=== PATIENT | female | born 1975 | race Caucasian/White ===

== ENCOUNTER 2018-07-12 06:41 | Day surgery (SDC) | payer MEDICAID ==
[~2018-07-12 06:41] MED LIST: CEFAZOLIN 2 GM/50 ML (PMX) 50 ML IVPB; SOD CHLORIDE 0.9% 1,000 ML IV
[2018-07-12] MEDS: ACETAMINOPHEN 500 MG TAB PO (07:00)
[2018-07-12] MEDS ORDERED: CEFAZOLIN 1 GM INJ (07:55)
[2018-07-12] MEDS ORDERED: PROPOFOL 40 ML (07:55)
[2018-07-12] MEDS ORDERED: MIDAZOLAM 1 MG/ML 2 ML INJ (07:55)
[2018-07-12] MEDS ORDERED: FENTAnyl 50 MCG/ML VIAL ×2 (07:55→10:53)
[2018-07-12] MEDS ORDERED: ONDANSETRON 4 MG INJ (07:56)
[2018-07-12] MEDS ORDERED: FAMOTIDINE 20 MG INJ (07:56)
[2018-07-12] MEDS ORDERED: OXYCODONE/ACETAMINOPHEN (5/325) TAB PO ×2 (09:00)
[2018-07-12] MEDS ORDERED: HYDROmorphONE 1 MG/5 ML IV SYRINGE IV (09:00)
[2018-07-12] MEDS ORDERED: ALBUTEROL 0.083% (NEB) 2.5 MG/3 ML AMP HHN (09:00)
[2018-07-12] MEDS ORDERED: FENTAnyl 50 MCG/ML VIAL IV ×2 (09:00)
[2018-07-12] MEDS ORDERED: DIPHENHYDRAMINE 50 MG INJ IV (09:00)
[2018-07-12] MEDS ORDERED: morphine (1 MG/ML) 10ML SYRINGE IV ×2 (09:00)
[2018-07-12] MEDS ORDERED: LABETALOL HCL 20MG INJ IV (09:00)
[2018-07-12] MEDS ORDERED: METOCLOPRAMIDE 10 MG INJ (09:23)
[2018-07-12] MEDS: ISOSULFAN BLUE 1% 5 ML INJ SC (09:58)
[2018-07-12] MEDS ORDERED: ACETAMINOPHEN 1000MG/100ML IV 100 ML IVPB (11:00)
[2018-07-12] MEDS ORDERED: ONDANSETRON 4 MG INJ IV (11:00)
[2018-07-12] MEDS ORDERED: morphine 2 MG INJ IV (11:00)
[2018-07-12] MEDS: MEPERIDINE 25 MG INJ IV (11:23)
[2018-07-12] MEDS: ONDANSETRON 4 MG INJ IV (11:25)
[2018-07-12] MEDS: HYDROmorphONE 1 MG/5 ML IV SYRINGE IV ×3 (11:35→12:07)
[2018-07-12] MEDS: D5W-0.45 NACL + KCL 20 MEQ 1,000 ML IV ×3 (11:41→20:13)
[2018-07-12] MEDS: ACETAMINOPHEN 325 MG TAB PO (20:12)
[2018-07-13] MEDS: ACETAMINOPHEN 325 MG TAB PO ×2 (02:38→13:49)
[2018-07-13] MEDS: D5W-0.45 NACL + KCL 20 MEQ 1,000 ML IV (02:50)
[2018-07-13 05:49] LABS: ADD MAN DIFF? NO
[2018-07-13 05:59] LABS: BASOPHILS % 0.5 % (0.0-2.0); EOSINOPHILS % 0.5 % (0.0-7.0); HEMATOCRIT 34.2 % (37.0-47.0); LYMPHOCYTES # 0.6 10^3/ul (0.8-2.9); LYMPHOCYTES % 11.2 % (15.0-51.0); MEAN CORPUSCULAR HEMOGLOBIN 28.3 pg (29.0-33.0); MEAN CORPUSCULAR HGB CONC 32.2 g/dl (32.0-37.0); MEAN CORPUSCULAR VOLUME 87.9 fl (82.0-101.0); MEAN PLATELET VOLUME 9.6 fl (7.4-10.4); MONOCYTE # 0.3 10^3/ul (0.3-0.9); MONOCYTES % 5.2 % (0.0-11.0); NEUTROPHIL # 4.6 10^3/ul (1.6-7.5); NEUTROPHILS % 82.4 % (39.0-77.0); PLATELET COUNT 290 10^3/UL (140-415); RED BLOOD COUNT 3.89 10^6/ul (4.20-5.40); RED CELL DISTRIBUTION WIDTH 12.9 % (11.5-14.5)
[2018-07-13 05:59] LABS: WHITE BLOOD COUNT 5.6 10^3/ul (4.8-10.8)
[2018-07-13 06:24] LABS: ALANINE AMINOTRANSFERASE 30 IU/L (13-69); ALBUMIN 3.7 g/dl (3.3-4.9); ALBUMIN/GLOBULIN RATIO 1.27; ALKALINE PHOSPHATASE 40 IU/L (42-121); ANION GAP 6 (5-13); ASPARTATE AMINO TRANSFERASE 38 IU/L (15-46); BILIRUBIN,INDIRECT 0.4 mg/dl (0-1.1); BILIRUBIN,TOTAL 0.4 mg/dl (0.2-1.3); BLOOD UREA NITROGEN 4 mg/dl (7-20); CALCIUM 8.9 mg/dl (8.4-10.2); CARBON DIOXIDE 25 mmol/L (21-31); CHLORIDE 110 mmol/L (97-110); CREATININE 0.45 mg/dl (0.44-1.00); Estimated GFR > 60 mL/min (>60); GLUCOSE 93 mg/dl (70-220); POTASSIUM 4.1 mmol/L (3.5-5.1); SODIUM 141 mmol/L (135-144); TOTAL PROTEIN 6.6 g/dl (6.1-8.1)
[2018-07-13] MEDS: HYDROCODONE/APAP (5/325) TAB PO (09:21)
== END 2018-07-13 15:45 | disposition home or self-care (01) ==
LOC: SDS 06:41 → REC 10:48 → MS1 16:54 → REC 16:54 → SDS 10:47 → MS1 10:49
DX: D05.92 Unspecified type of carcinoma in situ of left breast (principal)
CPT/HCPCS: 19301; 80053; 85025

== ENCOUNTER 2018-08-08 10:08 | Inpatient (IN) | payer MEDICAID ==
[~2018-08-08 10:08] MED LIST changes: -SOD CHLORIDE 0.9% 1,000 ML IV
[2018-08-08] MEDS: SOD CHLORIDE 0.9% 1,000 ML IV (11:23)
[2018-08-08] MEDS ORDERED: ONDANSETRON 4 MG INJ (14:23)
[2018-08-08] MEDS ORDERED: PROPOFOL 20 ML (14:23)
[2018-08-08] MEDS ORDERED: KETOROLAC 30 MG INJ (14:23)
[2018-08-08] MEDS ORDERED: MIDAZOLAM 1 MG/ML 2 ML INJ (14:23)
[2018-08-08] MEDS ORDERED: CEFAZOLIN 1 GM INJ (14:23)
[2018-08-08] MEDS ORDERED: ONDANSETRON 4 MG INJ IV (16:00)
[2018-08-08] MEDS ORDERED: ACETAMINOPHEN 1000MG/100ML IV 100 ML IVPB (16:00)
[2018-08-08] MEDS ORDERED: OXYCODONE/ACETAMINOPHEN (5/325) TAB PO (16:00)
[2018-08-08] MEDS: HYDROmorphONE 1 MG/5 ML IV SYRINGE IV (17:15)
[2018-08-08] MEDS: ONDANSETRON 4 MG INJ IV (17:16)
[2018-08-08] MEDS: D5W-0.45 NACL + KCL 20 MEQ 1,000 ML IV ×2 (20:14→23:53)
[2018-08-08] MEDS: morphine 2 MG INJ IV (21:41)
[2018-08-09] MEDS: D5W-0.45 NACL + KCL 20 MEQ 1,000 ML IV ×2 (04:30→13:43)
[2018-08-09] MEDS: morphine 2 MG INJ IV ×2 (04:44→12:17)
[2018-08-09 06:53] LABS: ADD MAN DIFF? NO
[2018-08-09 06:59] LABS: WHITE BLOOD COUNT 4.3 10^3/ul (4.8-10.8)
[2018-08-09 06:59] LABS: BASOPHILS % 0.7 % (0.0-2.0); EOSINOPHILS % 0.9 % (0.0-7.0); HEMATOCRIT 30.7 % (37.0-47.0); LYMPHOCYTES # 1.2 10^3/ul (0.8-2.9); LYMPHOCYTES % 27.6 % (15.0-51.0); MEAN CORPUSCULAR HEMOGLOBIN 28.2 pg (29.0-33.0); MEAN CORPUSCULAR HGB CONC 32.6 g/dl (32.0-37.0); MEAN CORPUSCULAR VOLUME 86.7 fl (82.0-101.0); MEAN PLATELET VOLUME 9.6 fl (7.4-10.4); MONOCYTE # 0.4 10^3/ul (0.3-0.9); MONOCYTES % 9.6 % (0.0-11.0); NEUTROPHIL # 2.6 10^3/ul (1.6-7.5); PLATELET COUNT 289 10^3/UL (140-415); RED BLOOD COUNT 3.54 10^6/ul (4.20-5.40); RED CELL DISTRIBUTION WIDTH 12.8 % (11.5-14.5)
[2018-08-09 07:17] LABS: ANION GAP 5 (5-13); BLOOD UREA NITROGEN 5 mg/dl (7-20); CALCIUM 8.5 mg/dl (8.4-10.2); CARBON DIOXIDE 26 mmol/L (21-31); CHLORIDE 107 mmol/L (97-110); CREATININE 0.47 mg/dl (0.44-1.00); Estimated GFR > 60 mL/min (>60); GLUCOSE 115 mg/dl (70-220); POTASSIUM 3.7 mmol/L (3.5-5.1); SODIUM 138 mmol/L (135-144)
[2018-08-09] MEDS: OXYCODONE/ACETAMINOPHEN (5/325) TAB PO ×2 (14:06→18:08)
[2018-08-10] MEDS: D5W-0.45 NACL + KCL 20 MEQ 1,000 ML IV ×3 (00:53→15:53)
[2018-08-10] MEDS: OXYCODONE/ACETAMINOPHEN (5/325) TAB PO ×4 (01:04→18:32)
== END 2018-08-10 18:40 | disposition home or self-care (01) | DRG 583 ==
LOC: SDS 10:08 → REC 15:54 → PP2 18:59
PROC: 0HTU0ZZ Resection of Left Breast, Open Approach (ICD-10-PCS; principal; 2018-08-08 12:30)
DX: C50.912 Malignant neoplasm of unspecified site of left female breast (principal)
CPT/HCPCS: 80048; 84703; 85025; 88307

== ENCOUNTER 2018-09-13 08:31 | Day surgery (SDC) | payer MEDICAID ==
[2018-09-13] MEDS ORDERED: MIDAZOLAM 1 MG/ML 2 ML INJ (11:02)
[2018-09-13] MEDS ORDERED: LIDOCAINE 1% (MDV) 20 ML INJ (11:02)
[2018-09-13] MEDS ORDERED: CEFAZOLIN 1 GM/50 ML (PMX) 50 ML IVPB (11:02)
[2018-09-13] MEDS ORDERED: HEPARIN 1000 UNITS/ML 10 ML INJ (11:02)
[2018-09-13] MEDS ORDERED: FENTAnyl 50 MCG/ML VIAL (11:02)
[2018-09-13] MEDS ORDERED: LIDOCAINE 1%/EPI (1:100,000) (MDV) 20 ML (11:03)
[2018-09-13] MEDS: ACETAMINOPHEN 325 MG TAB PO (14:39)
== END 2018-09-13 14:45 | disposition home or self-care (01) ==
LOC: SDS 08:31
DX: C50.912 Malignant neoplasm of unspecified site of left female breast (principal)
CPT/HCPCS: 36561